=== PATIENT | female | born 1990 | race African-American/Black ===

== ENCOUNTER 2016-11-29 20:15 | Inpatient (IN) | payer BC, OTHER ==
[~2016-11-29] VITALS: Ht 167.6 cm; Wt 105.2 kg
[~2016-11-29 20:15] MED LIST: AGM875T PO; CPR500T PO; FLC150T PO; HYDR-3714 PO; HYDR1TAB PO; METR500T PO; PHEN37.555 PO; SULF1TAB35 PO
[2016-11-29 20:30] VITALS: BP 139/89
[2016-11-29] MEDS ORDERED: LACTATED RINGERS 1,000 ML IV ONE (20:44)
[2016-11-29] MEDS ORDERED: LACTATED RINGERS 1,000 ML IV SCH (20:51)
[2016-11-29] MEDS ORDERED: ZOLPIDEM 5 MG (AMBIEN) TAB PO ONE (21:00)
[2016-11-29] MEDS ORDERED: MINERAL OIL CONCENTRATE 99.9% 15 ML UDC TOP PRN (21:00)
[2016-11-29] MEDS ORDERED: MISOPROSTOL 100 MCG (CYTOTEC) TAB PO ONE (21:00)
[2016-11-29] MEDS ORDERED: MISOPROSTOL 100 MCG (CYTOTEC) TAB ONE (21:05)
[2016-11-29 21:12] LABS: BILIRUBIN,URINE NEGATIVE (NEGATIVE); KETONES,URINE NEGATIVE (NEGATIVE); LEUKOCYTE ESTERASE ,URINE NEGATIVE (NEGATIVE); NITRITE,URINE NEGATIVE (NEGATIVE); PH,URINE 5 (5-9); PROTEIN,URINE NEGATIVE (NEGATIVE); UROBILINOGEN,URINE NORMAL (NORMAL)
[2016-11-29 21:35] LABS: BASOPHILS % (AUTO) 0 % (0-10); EOSINOPHILS % (AUTO) 0 % (0-10); LYMPHOCYTES % (AUTO) 25 % (12-44); MEAN CORPUSCULAR HEMOGLOBIN 22 PG (25-34); MEAN CORPUSCULAR HGB CONC 32 G/DL (32-36); MEAN CORPUSCULAR VOLUME 67 FL (80-99); MEAN PLATELET VOLUME 10.1 FL (7.4-10.4); MONOCYTES % (AUTO) 9 % (0-12); NEUTROPHILS # (AUTO) 7.8 X 10^3 (1.8-7.8); NEUTROPHILS % (AUTO) 66 % (42-75); PLATELET COUNT 304 10^3/uL (130-400); RED BLOOD COUNT 5.45 10^6/uL (4.35-5.85); WHITE BLOOD COUNT 11.9 10^3/uL (4.3-11.0)
[2016-11-29] MEDS: D5 LR IV SOLUTION 1,000 ML IV SCH (21:58)
[2016-11-29] MEDS ORDERED: CATHETER FLUSH 10 ML SYR IV SCH (22:00)
[2016-11-29] MEDS ORDERED: PREN-142 PO (23:09)
[2016-11-29] MEDS ORDERED: OMEP20TA7 PO (23:09)
[2016-11-29] MEDS ORDERED: SUFENTA 0.6MCG/ML BUPIVA 0.125 100 ML ONE (23:53)
[2016-11-29 23:57] VITALS: BP 170/105
[2016-11-30] VITALS (62 sets, daily range): BP systolic 76–163; BP diastolic 46–99
[2016-11-30] MEDS ORDERED: morphine INJ 10 MG/ML 1ML (SYR OR VIAL) IVP PRN
[2016-11-30] MEDS ORDERED: PROMETHAZINE INJ 25 MG/ML (PHENERGAN) AMP IVP PRN
[2016-11-30] MEDS ORDERED: BUPIVACAINE 0.25% 30 ML (SENSORCAINE) VIAL ONE (00:25)
[2016-11-30] MEDS ORDERED: fentaNYL INJECTION 100 MCG/2 ML AMP ONE (00:26)
[2016-11-30] MEDS ORDERED: LACTATED RINGERS 1,000 ML IV SCH (00:26)
[2016-11-30] MEDS ORDERED: METOCLOPRAMIDE INJ 10 MG/2 ML (REGLAN) IV PRN (00:30)
[2016-11-30] MEDS ORDERED: NALOXONE 0.4 MG/ML 1 ML (NARCAN) VIAL IV PRN ×2 (00:30)
[2016-11-30] MEDS ORDERED: EPIDURAL (SUFENTA 0.6MCG/ML BUPIVA 0.125%) 100 ML BAG EPI PRN (00:30)
[2016-11-30] MEDS ORDERED: diphenhydrAMINE 50 MG/ML INJ (BENADRYL) IV PRN (00:30)
[2016-11-30] MEDS ORDERED: ONDANSETRON 4 MG/2 ML (SDV) Z0FRAN IV PRN (00:30)
[2016-11-30] MEDS ORDERED: MISOPROSTOL 100 MCG (CYTOTEC) TAB PO SCH (01:00)
[2016-11-30] MEDS: D5 LR IV SOLUTION 1,000 ML IV SCH ×2 (03:33→07:08)
[2016-11-30] MEDS ORDERED: OXYTOCIN/NORMAL SALINE 500 ML IV SCH ×2 (08:00→11:37)
[2016-11-30] MEDS ORDERED: LIDOCAINE/EPI 1%-1:200,000 (XYLOCAINE) 30 ML VIAL ONE (10:48)
--- NOTE | 2016-11-30 11:40 | Postpartum Progress Note ---
Note Note Vaginal Delivery Note Date of Delivery: 11/30/16 11:17 Preoperative Diagnosis: Fabiana Serra is a 25 /Para 1 /0 , Gestational Age 40 4/7 postdates Postoperative Diagnosis: Same Surgeon: DARLIN VEGA Anesthesia: epidural Delivery Type: spontaneous vaginal Findings: Viable male infant, apgars 8/9, weight 6#11 oz Lacerations:2nd degree with left vaginal extension Intact placenta with 3 vessel cord. There was a nuchal cord 1 delivered through , loose . There was no body cord or shoulder dystocia Cytotec 800 mcg placed for hemorrhage prophylaxis due to infiltration of IV prior to completing the IV oxytocin. Estimated Blood Loss: 150 ml Complications: None Condition: Stable Description of Procedure: The patient is a 25 /Para 1 /0 ,Gestational Age 40 4/7 postdates. She was admitted and informed consent was obtained. Her labor course was remarkable for misoprostol x 1 dosing, epidural placement, AROM and then augmentation with oxytocin. She progressed to complete dilatation and began to push. She was then set up for delivery. The 's head was delivered atraumatically in the OA position. The shoulders and remainder of the infant's body were then delivered without difficulty. Upon delivery, the head was held below the level of the perineum and the mouth and nares were bulb suctioned. At the time of delivery, the amniotic fluid was noted to be meconium stained at delivery. There was also terminal meconium. The cord was doubly clamped and cut and the infant was handed off to the pediatric staff. An intact placenta with 3-vessel cord delivered via Abdirahman and there was found to be minimal bleeding.~ Vigorous fundal massage was performed and the fundus was found to be firm. IV oxytocin was given. Examination of the vagina and perineum revealed a 2nd degree laceration with left vaginal extension repaired in the usual fashion with 3-0 Vicryl suture. Following the repair, sponge, instrument and needle counts were correct. Mom and baby were both in stable condition in the labor suite. Vitals - Labs Vital Signs - I&O Vital Signs Date Time Temp Pulse Resp B/P (MAP) Pulse Ox O2 Delivery O2 Flow Rate FiO2 11/30/16 10:15 96 20 139/76 15.00 11/30/16 10:00 96 20 139/76 15.00 11/30/16 09:45 90 20 136/76 15.00 11/30/16 09:30 89 20 137/79 15.00 11/30/16 09:15 94 20 133/74 15.00 11/30/16 09:00 102 20 138/77 15.00 11/30/16 08:45 102 20 139/82 11/30/16 08:30 102 20 139/82 11/30/16 08:15 123 20 133/82 11/30/16 08:00 91 20 116/69 11/30/16 07:45 99 20 127/76 11/30/16 07:30 99 20 76/82 11/30/16 07:15 97.9 109 20 139/82 100 11/30/16 07:00 90 142/82 100 11/30/16 06:45 112 144/78 99 11/30/16 06:30 98.4 105 150/82 99 11/30/16 06:15 118 147/80 100 11/30/16 06:00 101 150/85 100 11/30/16 05:45 103 144/77 100 11/30/16 05:30 115 153/86 100 11/30/16 05:15 89 146/74 100 15.00 11/30/16 05:00 96 136/75 100 15.00 11/30/16 04:45 90 138/64 100 15.00 11/30/16 04:30 86 145/65 100 15.00 11/30/16 04:15 71 110/53 100 15.00 11/30/16 04:00 104 105/64 100 15.00 11/30/16 03:45 84 138/75 100 15.00 11/30/16 03:30 98.2 85 132/67 100 15.00 11/30/16 03:15 91 100 15.00 11/30/16 03:00 98 140/78 100 15.00 11/30/16 02:45 81 125/59 100 15.00 11/30/16 02:30 81 132/67 100 15.00 11/30/16 02:17 100 15.00 11/30/16 02:15 74 131/70 100 10.00 11/30/16 02:00 80 124/63 99 10.00 11/30/16 01:45 85 140/71 100 10.00 11/30/16 01:30 108 117/56 100 10.00 11/30/16 01:25 93 93/46 100 10.00 11/30/16 01:20 96 129/56 100 10.00 11/30/16 01:12 100 111/56 100 10.00 11/30/16 01:05 97.6 99 115/58 11/30/16 01:00 103 163/91 100 10.00 11/30/16 00:55 77 156/92 11/30/16 00:50 76 139/78 11/30/16 00:45 90 140/78 99 11/30/16 00:40 90 159/81 11/30/16 00:30 93 131/74 100 10.00 11/30/16 00:25 100 163/96 100 10.00 11/30/16 00:15 99 158/97 100 10.00 11/30/16 00:09 92 149/90 100 10.00 11/30/16 00:04 102 156/90 10.00 11/29/16 23:57 96 170/105 10.00 11/29/16 23:30 98.3 10.00 11/29/16 22:17 10.00 11/29/16 20:30 97.9 104 18 139/89 I & O 11/30/16 07:00 Intake Total 3000 ml Balance 3000 ml Labs Laboratory Tests 11/29/16 21:00: Urine Color YELLOW, Urine Clarity CLEAR, Urine pH 5, Urine Specific [address] 1.025[address], Urine Protein NEGATIVE, Urine Glucose (UA) NEGATIVE, Urine Ketones NEGATIVE, Urine Nitrite NEGATIVE, Urine Bilirubin NEGATIVE, Urine Urobilinogen NORMAL, Urine Leukocyte Esterase NEGATIVE, Urine RBC (Auto) 1+H, Urine RBC NONE , Urine WBC NONE, Urine Squamous Epithelial Cells 2-5, Urine Crystals NONE, Urine Bacteria FEWH, Urine Casts NONE, Urine Mucus NEGATIVE, Urine Culture Indicated NO 11/29/16 21:20: White Blood Count 11.9H, Red Blood Count 5.45, Hemoglobin 11.7, Hematocrit 37, Mean Corpuscular Volume 67L, Mean Corpuscular Hemoglobin 22L, Mean Corpuscular Hemoglobin Concent 32, Red Cell Distribution Width 20.0H, Platelet Count 304, Mean Platelet Volume 10.1, Neutrophils (%) (Auto) 66, Lymphocytes (%) (Auto) 25 , Monocytes (%) (Auto) 9, Eosinophils (%) (Auto) 0, Basophils (%) (Auto) 0, Neutrophils # (Auto) 7.8, Lymphocytes # (Auto) 3.0, Monocytes # (Auto) 1.0, Eosinophils # (Auto) 0.0, Basophils # (Auto) 0.0 DARLIN VEGA DO November 30, 2016 11:40
[2016-11-30] MEDS ORDERED: BENZOCAINE/MENTHOL (DERMOPLAST) 56 ML CAN TP PRN (11:45)
[2016-11-30] MEDS ORDERED: WITCH HAZEL(TUCKS) 40 EA JAR TOP PRN (11:45)
[2016-11-30] MEDS ORDERED: TETANUS,DIPTH,PERTUSS P/F (BOOSTRIX) 0.5 ML VIAL IM ONE (11:45)
[2016-11-30] MEDS ORDERED: MEASLES,MUMPS,RUBELLA 1 EA INJ SQ ONE (11:45)
[2016-11-30] MEDS ORDERED: MISOPROSTOL 200 MCG (CYTOTEC) TABLET PR NR (13:30)
[2016-11-30] MEDS: HYDROcodone/APAP 5 MG/325 MG (LORTAB) TAB PO PRN ×2 (13:34→21:03)
[2016-11-30] MEDS: IBUPROFEN 600 MG (MOTRIN) TAB PO SCH ×2 (13:34→20:10)
[2016-11-30] MEDS: DIBUCAINE (NUPERCAINAL) 1% OINT 30 GM TOP PRN (13:34)
[2016-11-30] MEDS ORDERED: CATHETER FLUSH 10 ML SYR IV SCH (14:00)
[2016-11-30] MEDS ORDERED: HYDR-3812 PO (15:47)
[2016-11-30] MEDS ORDERED: IBUP-1773 PO (15:47)
[2016-11-30] MEDS ORDERED: FERR-74 PO (15:47)
--- NOTE | 2016-11-30 15:48 | Discharge Inst-Women's Service ---
Discharge Inst-Women's Serv Depart Medication/Instructions New, Converted or Re-Newed RX: RX on Chart Final Diagnosis post dates vaginal delivery epidural 2nd degree laceration Consults/Follow Up Additional Follow Up: Yes (6 weeks post follow up) Activity Activity: Activity as Tolerated Driving Instructions: You May Drive NO SMOKING: NO SMOKING Nothing Inside Vagina: No Douching, No [place], No Tampons Diet Discharge Diet: No Restrictions Symptoms to Report to : Swelling Increased, Bleeding Excessive, Pain Increased, Fever Over 101 Degrees F, Vaginal Bleeding Increase, Cramps in Feet or Legs, Vaginal Discharge Foul For Any Problems or Questions: Contact Your Physician Skin/Wound Care Bathing Instructions: DARLIN Mejía DO November 30, 2016 15:48
[2016-11-30] MEDS: DOCUSATE SODIUM 100 MG (COLACE) CAP PO SCH (20:10)
[2016-12-01] MEDS: HYDROcodone/APAP 5 MG/325 MG (LORTAB) TAB PO PRN ×2 (05:52→16:57)
[2016-12-01] MEDS: IBUPROFEN 600 MG (MOTRIN) TAB PO SCH ×4 (05:52→23:56)
[2016-12-01 05:55] VITALS: BP 130/73
[2016-12-01 06:35] LABS: BASOPHILS % (AUTO) 0 % (0-10); EOSINOPHILS # (AUTO) 0.1 10^3/uL (0.0-0.3); EOSINOPHILS % (AUTO) 0 % (0-10); LYMPHOCYTES # (AUTO) 3.8 X 10^3 (1.0-4.0); LYMPHOCYTES % (AUTO) 27 % (12-44); MEAN CORPUSCULAR HEMOGLOBIN 21 PG (25-34); MEAN CORPUSCULAR HGB CONC 31 G/DL (32-36); MEAN CORPUSCULAR VOLUME 68 FL (80-99); MEAN PLATELET VOLUME 9.1 FL (7.4-10.4); MONOCYTES # (AUTO) 1.1 X 10^3 (0.0-1.0); MONOCYTES % (AUTO) 8 % (0-12); NEUTROPHILS % (AUTO) 65 % (42-75); PLATELET COUNT 229 10^3/uL (130-400); RED BLOOD COUNT 4.91 10^6/uL (4.35-5.85); RED CELL DISTRIBUTION WIDTH 19.9 % (10.0-14.5); WHITE BLOOD COUNT 13.9 10^3/uL (4.3-11.0)
[2016-12-01 09:00] VITALS: BP 125/81
[2016-12-01] MEDS: DOCUSATE SODIUM 100 MG (COLACE) CAP PO SCH ×2 (09:18→21:35)
[2016-12-01] MEDS: PRENATAL VITAMIN 1 EA TAB PO SCH (09:18)
[2016-12-01] MEDS: FERROUS SULF 325 MG (IRON) TAB PO SCH (09:18)
[2016-12-01 12:30] VITALS: BP 127/81
--- NOTE | 2016-12-01 13:37 | Anesthesia-Regional Post-Op ---
Regional Patient Condition Mental Status: Alert, Oriented x3 Circulation: Same as Pre-Op Headache: Absent Sensation: Full Recovery Motor Block: Absent Post Op Complications Complications None Follow Up Care/Instructions Patient Instructions None needed. Anesthesia/Patient Condition Patient is doing well, no complaints, stable vital signs, no apparent adverse anesthesia problems. No complications reported per nursing. SHAISTA PRADO CRNA December 01, 2016 13:37
[2016-12-01] MEDS ORDERED: MEASLES,MUMPS,RUBELLA 1 EA INJ ONE (14:38)
[2016-12-01 18:00] VITALS: BP 140/92
--- NOTE | 2016-12-01 18:23 | Progress Note-Standard ---
Standard Progress Note Progress Notes/Assess & Plan Progress/Assessment & Plan this patient is without complaint except for some back pain that she attributes to a pulled muscle and perineal pain secondary to her delivery. Pain medicine is adequate currently. Patient is ambulating, voiding and tolerating by mouth well.she denies headache, denies shortness breath, denies nausea vomiting. Vital Signs Date Time Temp Pulse Resp B/P (MAP) Pulse Ox O2 Delivery O2 Flow Rate FiO2 12/01/16 18:00 98.2 94 20 140/92 100 12/01/16 12:30 97.6 84 18 127/81 100 12/01/16 09:00 97.4 87 18 125/81 99 12/01/16 05:55 97.6 84 18 130/73 98 11/30/16 20:00 97.8 87 18 131/84 99 I & O 12/01/16 07:00 Intake Total 1575 ml Balance 1575 ml Laboratory Tests Test 12/01/16 06:27 Range/Units White Blood Count 13.9 H 4.3-11.0 10^3/uL Red Blood Count 4.91 4.35-5.85 10^6/uL Hemoglobin 10.5 L 11.5-16.0 G/DL Hematocrit 34 L 35-52 % Mean Corpuscular Volume 68 L 80-99 FL Mean Corpuscular Hemoglobin 21 L 25-34 PG Mean Corpuscular Hemoglobin Concent 31 L 32-36 G/DL Red Cell Distribution Width 19.9 H 10.0-14.5 % Platelet Count 229 130-400 10^3/uL Mean Platelet Volume 9.1 7.4-10.4 FL Neutrophils (%) (Auto) 65 42-75 % Lymphocytes (%) (Auto) 27 12-44 % Monocytes (%) (Auto) 8 0-12 % Eosinophils (%) (Auto) 0 0-10 % Basophils (%) (Auto) 0 0-10 % Neutrophils # (Auto) 9.0 H 1.8-7.8 X 10^3 Lymphocytes # (Auto) 3.8 1.0-4.0 X 10^3 Monocytes # (Auto) 1.1 H 0.0-1.0 X 10^3 Eosinophils # (Auto) 0.1 0.0-0.3 10^3/uL Basophils # (Auto) 0.0 0.0-0.1 10^3/uL patient's vital signs are stable. She is afebrile. Her blood pressure somewhat labile but that has been associated with her episodes of increasing pain. Lab work is normal. Assessment and plan day number 1 status post spontaneous vaginal delivery doing well. Plan is for routine convalescing care and consider discharge tomorrow BILLIE MERCADO MD December 01, 2016 6:22 pm
[2016-12-01] MEDS: DIBUCAINE (NUPERCAINAL) 1% OINT 30 GM TOP PRN (18:38)
[2016-12-01 21:35] VITALS: BP 146/77
[2016-12-02] MEDS: IBUPROFEN 600 MG (MOTRIN) TAB PO SCH (05:49)
[2016-12-02 05:50] VITALS: BP 110/69
[2016-12-02] MEDS: HYDROcodone/APAP 5 MG/325 MG (LORTAB) TAB PO PRN (05:52)
--- NOTE | 2016-12-02 07:26 | Progress Note-Standard ---
Standard Progress Note Progress Notes/Assess & Plan Progress/Assessment & Plan this patient is without complaint except for some back pain that she attributes to a pulled muscle and perineal pain secondary to her delivery. Pain medicine is adequate currently. Patient is ambulating, voiding and tolerating by mouth well.she denies headache, denies shortness breath, denies nausea vomiting. Vital Signs Date Time Temp Pulse Resp B/P (MAP) Pulse Ox O2 Delivery O2 Flow Rate FiO2 12/01/16 18:00 98.2 94 20 140/92 100 12/01/16 12:30 97.6 84 18 127/81 100 12/01/16 09:00 97.4 87 18 125/81 99 12/01/16 05:55 97.6 84 18 130/73 98 11/30/16 20:00 97.8 87 18 131/84 99 I & O 12/01/16 07:00 Intake Total 1575 ml Balance 1575 ml Laboratory Tests Test 12/01/16 06:27 Range/Units White Blood Count 13.9 H 4.3-11.0 10^3/uL Red Blood Count 4.91 4.35-5.85 10^6/uL Hemoglobin 10.5 L 11.5-16.0 G/DL Hematocrit 34 L 35-52 % Mean Corpuscular Volume 68 L 80-99 FL Mean Corpuscular Hemoglobin 21 L 25-34 PG Mean Corpuscular Hemoglobin Concent 31 L 32-36 G/DL Red Cell Distribution Width 19.9 H 10.0-14.5 % Platelet Count 229 130-400 10^3/uL Mean Platelet Volume 9.1 7.4-10.4 FL Neutrophils (%) (Auto) 65 42-75 % Lymphocytes (%) (Auto) 27 12-44 % Monocytes (%) (Auto) 8 0-12 % Eosinophils (%) (Auto) 0 0-10 % Basophils (%) (Auto) 0 0-10 % Neutrophils # (Auto) 9.0 H 1.8-7.8 X 10^3 Lymphocytes # (Auto) 3.8 1.0-4.0 X 10^3 Monocytes # (Auto) 1.1 H 0.0-1.0 X 10^3 Eosinophils # (Auto) 0.1 0.0-0.3 10^3/uL Basophils # (Auto) 0.0 0.0-0.1 10^3/uL patient's vital signs are stable. She is afebrile. Her blood pressure somewhat labile but that has been associated with her episodes of increasing pain. Lab work is normal. Assessment and plan day number 1 status post spontaneous vaginal delivery doing well. Plan is for routine convalescing care and consider discharge tomorrow Dec 02 2016 Patient without complaint. She is ablating, voiding, tolerating by mouth well, has good pain control and is requesting discharge home. Vital Signs Date Time Temp Pulse Resp B/P (MAP) Pulse Ox O2 Delivery O2 Flow Rate FiO2 12/02/16 05:50 97.4 76 20 110/69 97 12/01/16 21:35 97.3 89 20 146/77 97 15.00 15.00 12/01/16 18:00 98.2 94 20 140/92 100 12/01/16 12:30 97.6 84 18 127/81 100 12/01/16 09:00 97.4 87 18 125/81 99 Signs Are Stable. Patient Is Afebrile. Fundus Is Firm below the Umbilicus Nontender. Extremities Show No Clubbing Cyanosis. There Is No Homans Sign. Assessment and Plan day 2 status post spontaneous vaginal delivery doing well. Plan is for discharge home with follow-up in clinic Final Diagnosis BILLIE FRITZ MD December 02, 2016 7:26 am
[2016-12-02 09:15] VITALS: BP 124/78
[2016-12-02] MEDS: PRENATAL VITAMIN 1 EA TAB PO SCH (09:52)
[2016-12-02] MEDS: DOCUSATE SODIUM 100 MG (COLACE) CAP PO SCH (09:52)
[2016-12-02] MEDS: FERROUS SULF 325 MG (IRON) TAB PO SCH (09:52)
[2016-12-02 12:15] VITALS: BP 124/78
== END 2016-12-02 12:15 | disposition home or self-care (01) | DRG 774 ==
LOC: LDRP 20:15
PROVIDERS: ADMIT Obstetrics & Gynecology; ATTEND Obstetrics & Gynecology
PROC: 10E0XZZ Delivery of Products of Conception, External Approach (ICD-10-PCS; principal; 2016-11-30)
PROC: 0KQM0ZZ Repair Perineum Muscle, Open Approach (ICD-10-PCS; 2016-11-30)
DX: O48.0 Post-term pregnancy (principal); O72.1 Other immediate postpartum hemorrhage; O70.1 Second degree perineal laceration during delivery; O69.81X0 Labor and delivery complicated by cord around neck, without compression, not applicable or unspecified; Z3A.40 40 weeks gestation of pregnancy; Z37.0 Single live birth; Z23 Encounter for immunization
CPT/HCPCS: 36415; 81000; 85025; 86850; 86900; 86901; 90707

== ENCOUNTER 2021-06-08 18:02 | Emergency (ER) | payer OTHER ==
[~2021-06-08] VITALS: Ht 167 cm; Wt 102.9 kg
[~2021-06-08 18:02] MED LIST changes: +ACHD5005 PO; +FERR325T18 PO; +IBUP-1773 PO; +OMEP20TA7 PO; +PREN-142 PO
[2021-06-08] MEDS ORDERED: NS IV 1000 ML 1,000 ML IV SCH (18:30)
--- NOTE | 2021-06-08 18:31 | ED Dyspnea ---
General Stated Complaint: COVID POSITIVE, SOB Source of Information: Patient Exam Limitations: No Limitations History of Present Illness Date Seen by Provider: Jun 08, 2021 Time Seen by Provider: 18:20 Initial Comments Patient is a 30-year-old female who presents to the emergency department today with a chief complaint of being Covid positive, having generalized fatigue and weakness, shortness of breath, severe coughing fit. She is also having some diarrhea. Patient states she was diagnosed a week ago yesterday. This is day nine. Patient was started on hydroxychloroquine, Zofran, azithromycin and prednisone by her primary care doctor. She states she stopped taking the hydroxychloroquine today. Patient denies any fevers or chills or sore throat. She has had a little ear congestion. She states her cough is intermittently productive of a clear sputum. She is very nauseated having a hard time keeping down fluids and food. She states she has been up walking around but she does h ave a little calf cramping in her bilateral legs. No swelling. She states she has been quarantining and her and son are both Covid negative. Just after a coughing fit today she became so short of breath she thought she needed to be checked out. All other review of systems reviewed and negative except as stated. Timing/Duration: 1 Week Severity: Moderate Prior Episodes/Possible Cause: Illness Exposure Modifying Factors: Worse With Coughing; Improves With Rest Associated Symptoms: Anxiety, Cough, Lightheadedness, Weakness Allergies and Home Medications Allergies Coded Allergies: Sulfa (Sulfonamide Antibiotics) (Unverified Allergy, Intermediate, CHEST PAIN, RASH, 11/18/10) Uncoded Allergies: SULF (Allergy, Unknown, SWELLING, 02/09/14) Patient Home Medication List Home Medication List Reviewed: Yes Ferrous Sulfate (Ferrous Sulfate) 325 Mg Tablet, 325 MG PO DAILY Prescribed by: DARLIN VEGA on 11/30/161546 Hydrocodone Bit/Acetaminophen (Lortab 5 Mg Tablet) 1 Each Tablet, 1-2 TAB PO Q4H PRN for PAIN-MODERATE Prescribed by: DARLIN VEGA on 11/30/161546 Ibuprofen (Ibuprofen) 600 Mg Tablet, 600 MG PO Q6H Prescribed by: DARLIN VEGA on 11/30/161546 Omeprazole (Omeprazole) 20 Mg Tablet.dr 20 MG PO PRN, (Reported) Entered as Reported by: MARCEL OATES on 11/29/162308 Vit No.124/Iron/FA ( Vitamin Tablet) 1 Each Tablet, 1 EACH PO DAILY, (Reported) Entered as Reported by: MARCEL OATES on 11/29/162308 Review of Systems Review of Systems Constitutional: see HPI EENTM: other (left ear fullness) Respiratory: cough, dyspnea on exertion, phlegm, short of breath Cardiovascular: no symptoms reported Gastrointestinal: diarrhea, nausea Genitourinary: no symptoms reported Musculoskeletal: muscle cramps (bilateral legs) Skin: no symptoms reported Psychiatric/Neurological: Anxiety All Other Systems Reviewed Negative Unless Noted: Yes Past Jkinggi-Useoth-Wlfhta Hx Seasonal Allergies Seasonal Allergies: No Past Medical History Surgeries: Yes Respiratory: No Cardiac: No Neurological: No Genitourinary: No Gastrointestinal: Yes (GERD) Musculoskeletal: No Endocrine: No HEENT: No Cancer: No Psychosocial: Yes Anxiety Integumentary: Yes Eczema Blood Disorders: No Adverse Reaction/Blood Tranf: No Family Medical History Diabetes mellitus (Father- type one Grandmother - type one) FH: arthritis (Mother) FH: prostate cancer (Father) FHx: rheumatoid arthritis (Mother) Hypertension (Mother) Physical Exam Vital Signs Vital Signs - First Documented 06/08/21 18:33 Temp 36.3 Pulse 133 Resp 26 B/P (MAP) 136/93 (107) Pulse Ox 98 Capillary Refill : Height, Weight, BMI Height: 5'6.00" Weight: 232lbs. 0.2oz. 105.810742xw; 37.5 BMI Method:Stated General Appearance: WD/WN, Anxious HEENT: TMs Normal Neck: Full Range of Motion, Normal Inspection Respiratory: Normal Breath Sounds, No Accessory Muscle Use, No Respiratory Distress, Crackles (scattered light crackles at the apices bilaterally) Cardiovascular: Regular Rate, Rhythm (tachy at 110-130), Normal Peripheral Pulses, Other (brisk cap refill) Gastrointestinal: Non Tender, Soft Extremity: Normal Capillary Refill, Normal Inspection, Normal Range of Motion, Non Tender, No Calf Tenderness, No Pedal Edema Neurologic/Psychiatric: Alert, Oriented x3, No Motor/Sensory Deficits, Normal Mood/Affect, Other (slightly anxious) Skin: Normal Color, Warm/Dry Progress/Results/Core Measures Results/Orders Lab Results Laboratory Tests Test 06/08/21 18:29 Range/Units White Blood Count 4.7 4.3-11.0 10^3/uL Red Blood Count 6.13 H 3.80-5.11 10^6/uL Hemoglobin 12.9 11.5-16.0 g/dL Hematocrit 41 35-52 % Mean Corpuscular Volume 67 L 80-99 fL Mean Corpuscular Hemoglobin 21 L 25-34 pg Mean Corpuscular Hemoglobin Concent 31 L 32-36 g/dL Red Cell Distribution Width 18.5 H 10.0-14.5 % Platelet Count 266 130-400 10^3/uL Mean Platelet Volume 8.9 L 9.0-12.2 fL Immature Granulocyte % (Auto) 0 % Neutrophils (%) (Auto) 79 H 42-75 % Lymphocytes (%) (Auto) 12 12-44 % Monocytes (%) (Auto) 9 0-12 % Eosinophils (%) (Auto) 0 0-10 % Basophils (%) (Auto) 0 0-10 % Neutrophils # (Auto) 3.7 1.8-7.8 10^3/uL Lymphocytes # (Auto) 0.6 L 1.0-4.0 10^3/uL Monocytes # (Auto) 0.4 0.0-1.0 10^3/uL Eosinophils # (Auto) 0.0 0.0-0.3 10^3/uL Basophils # (Auto) 0.0 0.0-0.1 10^3/uL Immature Granulocyte # (Auto) 0.0 0.0-0.1 10^3/uL Sodium Level 136 135-145 MMOL/L Potassium Level 4.0 3.6-5.0 MMOL/L Chloride Level 101 98-107 MMOL/L Carbon Dioxide Level 20 L 21-32 MMOL/L Anion Gap 15 H 5-14 MMOL/L Blood Urea Nitrogen 13 7-18 MG/DL Creatinine 0.74 0.60-1.30 MG/DL Estimat Glomerular Filtration Rate 112 BUN/Creatinine Ratio 18 Glucose Level 121 H 70-105 MG/DL Calcium Level 9.1 8.5-10.1 MG/DL My Orders Orders - ANITA PEOPLES MD Ed Iv/Invasive Line Start (06/08/21 18:27) Cbc With Automated Diff (06/08/21 18:27) Basic Metabolic Panel (06/08/21 18:27) Chest 1 View, Ap/Pa Only (06/08/21 18:27) Ns Iv 1000 Ml (Sodium Chloride 0.9%) (06/08/21 18:30) Simethicone Tablet (Mylicon Chewable Tab (06/08/21 19:15) Medications Given in ED Current Medications Medications Dose Ordered Sig/Jorge Route Start Time Stop Time Status Last Admin Dose Admin Simethicone 80 mg ONCE ONCE PO 06/08/21 19:15 06/08/21 19:16 DC 06/08/21 19:34 80 MG Vital Signs/I&O 06/08/21 18:33 Temp 36.3 Pulse 133 Resp 26 B/P (MAP) 136/93 (107) Pulse Ox 98 Progress Progress Note : Time: 20:00 Progress Note Patient states she is feeling better after fluids. I recommended she finish out her steroids and her azithromycin but she can stop the hydroxychloroquine. She is resting comfortably laying on her right side, blood pressure is good oxygen saturations are 97 to 98% on room air. Heart rate is in the 80s. Patient does have bilateral pneumonia consistent with her Covid infection. It is nonsevere. She is encouraged to spot check her oxygen levels at home and if she starts to notice that they are declining especially below 90 she needs to come back to the emergency department. I have advised her to continue to have some activity as well as to drink plenty of fluids. She verbalizes understanding. She is comfortable with discharged home. All questions have been sought and answered. Diagnostic Imaging Diagonstic Imaging: Xray Plain Films/CT/US/NM/MRI: chest Comments [facility] [place], [place] NAME: ANGELINA SILVESTRE [facility] REC#: [id number] PT STATUS: REG ER : 1990 PHYSICIAN: ANITA PEOPLES MD ADMIT DATE: 06/08/21/ER Signed Date of Exam:06/08/21 CHEST 1 VIEW, AP/PA ONLY HISTORY: Shortness of breath, cough, Covid positive. TECHNIQUE: Frontal view of the chest. COMPARISON: 04/07/2013. FINDINGS: There are patchy airspace opacities in the right lung base and left upper lobe. There is no pleural effusion or pneumothorax. The cardiac silhouette is normal in size. IMPRESSION: Bilateral airspace opacities, consistent with infection. Dictated by: Dictated on workstation # [id number] Dict: 06/08/211918 Trans: 06/08/211945 [facility] [id number] Interpreted by: RIKY MERCEDES MD Electronically signed by: RIKY MERCEDES MD 06/08/211945 Departure Impression Primary Impression: Pneumonia due to COVID-19 virus Additional Impression: Mild dehydration Disposition: HOME, SELF-CARE Condition: Stable Departure-Patient Inst. Decision time for Depature: 20:02 Referrals: LUCIEN ROGERS MD (PCP/Family) Primary Care Physician Patient Instructions: COVID-19 ED Add. Discharge Instructions: Please drink plenty of fluids to stay well-hydrated. Continue Tylenol and/or ibuprofen as needed for body aches/fever. Finish out your steroids. And finish her azithromycin. You can discontinue the hydroxychloroquine. Please continue to spot check your oxygen saturations, if you notice that they are trending lower especially below 90, if you are having worsening shortness of breath, develop fever or worsening cough please come back to the emergency room for reevaluation. ANITA PEOPLES MD Jun 08, 2021 18:31
[2021-06-08 18:37] LABS: BASOPHILS % (AUTO) 0 % (0-10); EOSINOPHILS % (AUTO) 0 % (0-10); HEMATOCRIT 41 % (35-52); HEMOGLOBIN 12.9 g/dL (11.5-16.0); LYMPHOCYTES # (AUTO) 0.6 10^3/uL (1.0-4.0); LYMPHOCYTES % (AUTO) 12 % (12-44); MEAN CORPUSCULAR HEMOGLOBIN 21 pg (25-34); MEAN CORPUSCULAR HGB CONC 31 g/dL (32-36); MEAN CORPUSCULAR VOLUME 67 fL (80-99); MEAN PLATELET VOLUME 8.9 fL (9.0-12.2); MONOCYTES # (AUTO) 0.4 10^3/uL (0.0-1.0); MONOCYTES % (AUTO) 9 % (0-12); NEUTROPHILS # (AUTO) 3.7 10^3/uL (1.8-7.8); NEUTROPHILS % (AUTO) 79 % (42-75); PLATELET COUNT 266 10^3/uL (130-400); WHITE BLOOD COUNT 4.7 10^3/uL (4.3-11.0)
[2021-06-08 18:53] LABS: CALCIUM 9.1 MG/DL (8.5-10.1)
[2021-06-08 18:57] LABS: CREATININE SERUM 0.74 MG/DL (0.60-1.30)
[2021-06-08] MEDS ORDERED: SIMETHICONE 80 MG (MYLICON) CHEW PO ONE (19:15)
--- NOTE | 2021-06-08 19:23 | Diagnostic Imaging Report ---
HISTORY: Shortness of breath, cough, Covid positive. TECHNIQUE: Frontal view of the chest. COMPARISON: 04/07/2013. FINDINGS: There are patchy airspace opacities in the right lung base and left upper lobe. There is no pleural effusion or pneumothorax. The cardiac silhouette is normal in size. IMPRESSION: Bilateral airspace opacities, consistent with infection. Dictated by: Dictated on workstation # [id number]
[2021-06-08 20:15] VITALS: BP 121/79
[2021-06-09] MEDS ORDERED: ONDA4TAB11 PO (20:35)
[2021-06-09] MEDS ORDERED: DEXA6TAB6 PO (20:35)
[2021-06-09] MEDS ORDERED: OXYGEN CONCENTRATOR (20:35)
== END 2021-06-08 20:18 | disposition home or self-care (01) ==
LOC: EDUNIT# 18:02 → ER 18:04
DX: U07.1 COVID-19 (principal); J12.82 Pneumonia due to coronavirus disease 2019; E86.0 Dehydration
CPT/HCPCS: 36415; 71045; 80048; 85025

== ENCOUNTER 2021-06-09 17:19 | Emergency (ER) | payer OTHER ==
[~2021-06-09] VITALS: Ht 167 cm; Wt 103.0 kg
[2021-06-09] MEDS ORDERED: LACTATED RINGERS 1,000 ML IV ONE (18:00)
--- NOTE | 2021-06-09 18:06 | ED General ---
General Chief Complaint: COVID19 Suspect/Confirmed Stated Complaint: COVID POSITIVE, SOB Nursing Triage Note: PT AMB TO RM 9 W REPORTS OF TESTING COVID + SATURDAY. PT IS CONCERNED ABOUT HER O2 SAT THE PAST 24 HOURS, REPORTING IT HAS BEEN IN THE LOW 90%. PT A&OX4. Source of Information: Patient Exam Limitations: No Limitations (CIPRIANO NINO MD) History of Present Illness Date Seen by Provider: Jun 09, 2021 Time Seen by Provider: 17:36 Initial Comments This 30-year-old young lady presents to the emergency room on day #10 of COVID- 19 infection. She has been ill since May 31 and was diagnosed on June 03. She has been treated with prednisone, azithromycin, and hydroxychloroquine. She was seen in this ER last night and was given IV hydration. Hydroxychloroquine was stopped and her GI symptoms have improved. She has been able to drink several bottles of water today without vomiting or diarrhea. However, today she feels more short of breath and has anxiety about sleeping. She notes her oxygen levels dropped to 91% at home while awake. She was noted to have an oxygen saturation of 88 on room air when she checked into the ER. She has a few doses of prednisone left. She took her last dose of a azithromycin today. She denies any other significant health problems. She did not receive monoclonal antibodies. She does have chest pain with coughing and deep breathing. She describes it as a burning sensation. She is tearful about the duration and intensity of her symptoms. (CIPRIANO NINO MD) Allergies and Home Medications Allergies Coded Allergies: Sulfa (Sulfonamide Antibiotics) (Unverified Allergy, Intermediate, CHEST PAIN, RASH, 11/18/10) Uncoded Allergies: SULF (Allergy, Unknown, SWELLING, 02/09/14) Patient Home Medication List Home Medication List Reviewed: Yes (CIPRIANO NINO MD) Dexamethasone (Decadron) 6 Mg Tablet, 6 MG PO DAILY Prescribed by: FELICE MCCABE on 06/09/212034 Ferrous Sulfate (Ferrous Sulfate) 325 Mg Tablet, 325 MG PO DAILY Prescribed by: DARLIN VEGA on 11/30/16 1105 Hydrocodone Bit/Acetaminophen (Lortab 5 Mg Tablet) 1 Each Tablet, 1-2 TAB PO Q4H PRN for PAIN-MODERATE Prescribed by: DARLIN VEGA on 11/30/161546 Ibuprofen (Ibuprofen) 600 Mg Tablet, 600 MG PO Q6H Prescribed by: DARLIN VEGA on 11/30/161546 Omeprazole (Omeprazole) 20 Mg Tablet.dr, 20 MG PO PRN, (Reported) Entered as Reported by: MARCEL OATES on 11/29/162308 Ondansetron (Ondansetron Odt) 4 Mg Tab.rapdis, 4 MG PO Q6H PRN for NAUSEA/VOMITING Prescribed by: FELICE MCCABE on 06/09/212034 Vit No.124/Iron/FA ( Vitamin Tablet) 1 Each Tablet, 1 EACH PO DAILY, (Reported) Entered as Reported by: MARCEL OATES on 11/29/162308 [oxygen Concentrator] , L NA DAILY PRN for SHORTNESS OF BREATH, (DME) Prescribed by: FELICE MCCABE on 06/09/212034 Review of Systems Review of Systems Constitutional: malaise EENTM: other (Dry mouth) Respiratory: see HPI Cardiovascular: no symptoms reported Gastrointestinal: see HPI Genitourinary: no symptoms reported : No Musculoskeletal: no symptoms reported Skin: no symptoms reported Psychiatric/Neurological: Anxiety Hematologic/Lymphatic: No Symptoms Reported Immunological/Allergic: no symptoms reported (CIPRIANO NINO MD) Past Mtbhici-Euvqsg-Dshbab Hx Patient Social History Tobacco Use?: No Use of E-Cig and/or Vaping dev: No Substance use?: No Alcohol Use?: No (CIPRIANO NINO MD) Immunizations Up To Date First/Initial COVID19 Vaccinat: 10/13 COVID19 Vaccine 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: [employer] (CIPRIANO NINO MD) Seasonal Allergies Seasonal Allergies: No (CIPRIANO NINO MD) Past Medical History Surgery/Hospitalization HX: anxiety Surgeries: Yes ([place] teeth) Orthopedic, Tonsillectomy Respiratory: No Cardiac: No Neurological: No : No Genitourinary: No Gastrointestinal: Yes (GERD) Gastroesophageal Reflux Musculoskeletal: No Endocrine: No HEENT: No Cancer: No Psychosocial: Yes Anxiety Integumentary: Yes Eczema Blood Disorders: No Adverse Reaction/Blood Tranf: No (CIPRIANO NINO MD) Family Medical History Diabetes mellitus (Father- type one Grandmother - type one) FH: arthritis (Mother) FH: prostate cancer (Father) FHx: rheumatoid arthritis (Mother) Hypertension (Mother) Physical Exam Vital Signs Vital Signs - First Documented 06/09/21 17:27 Temp 37.0 Pulse 104 Resp 22 B/P (MAP) 134/88 (103) Pulse Ox 88 (CORTEZ,FELICE J) Vital Signs Capillary Refill : Less Than 3 Seconds (CIPRIANO NINO MD) Height, Weight, BMI Height: 5'6.00" Weight: 232lbs. 0.2oz. 105.272052gd; 36.00 BMI Method:Stated General Appearance: WD/WN, Anxious HEENT: PERRL/EOMI, Normal ENT Inspection, Other (Oropharynx somewhat dry) Neck: Normal Inspection Respiratory: Lungs Clear, No Accessory Muscle Use, No Respiratory Distress; No Crackles; Decreased Breath Sounds; No Wheezing Cardiovascular: Regular Rate, Rhythm, No Edema, No Murmur Gastrointestinal: Normal Bowel Sounds, Non Tender, Soft Extremity: Normal Inspection, Non Tender, No Pedal Edema Neurologic/Psychiatric: Alert, Oriented x3, No Motor/Sensory Deficits, horticultural therapist II- XII Norm as Tested, Other (Anxious) Skin: Normal Color, Warm/Dry (CIPRIANO NINO MD) Progress/Results/Core Measures Suspected Sepsis SIRS Temperature: Pulse: 104 Respiratory Rate: 22 Blood Pressure 134 /88 Mean: 103 (CIPRIANO NINO MD) Results/Orders Lab Results Laboratory Tests Test 06/09/21 18:09 06/09/21 18:40 Range/Units Blood Gas Puncture Site L RADIAL Blood Gas Patient Temperature 37.0 Arterial Blood pH 7.46 H 7.37-7.43 Arterial Blood Partial Pressure CO2 34 L 35-45 MMHG Arterial Blood Partial Pressure O2 74 L 79-93 MMHG Arterial Blood HCO3 24 23-27 MMOL/L Arterial Blood Total CO2 25.2 21.0-31.0 MMOL/L Arterial Blood Oxygen Saturation 94 94-100 % Arterial Blood Base Excess 0.7 -2.5-2.5 MMOL/L [place] Test YES-POS Blood Gas Ventilator Setting NO Blood Gas Inspired Oxygen ROOM AIR White Blood Count 5.2 4.3-11.0 10^3/uL Red Blood Count 5.91 H 3.80-5.11 10^6/uL Hemoglobin 12.2 11.5-16.0 g/dL Hematocrit 40 35-52 % Mean Corpuscular Volume 67 L 80-99 fL Mean Corpuscular Hemoglobin 21 L 25-34 pg Mean Corpuscular Hemoglobin Concent 31 L 32-36 g/dL Red Cell Distribution Width 17.8 H 10.0-14.5 % Platelet Count 269 130-400 10^3/uL Mean Platelet Volume 9.2 9.0-12.2 fL Immature Granulocyte % (Auto) 0 % Neutrophils (%) (Auto) 73 42-75 % Lymphocytes (%) (Auto) 18 12-44 % Monocytes (%) (Auto) 10 0-12 % Eosinophils (%) (Auto) 0 0-10 % Basophils (%) (Auto) 0 0-10 % Neutrophils # (Auto) 3.7 1.8-7.8 10^3/uL Lymphocytes # (Auto) 0.9 L 1.0-4.0 10^3/uL Monocytes # (Auto) 0.5 0.0-1.0 10^3/uL Eosinophils # (Auto) 0.0 0.0-0.3 10^3/uL Basophils # (Auto) 0.0 0.0-0.1 10^3/uL Immature Granulocyte # (Auto) 0.0 0.0-0.1 10^3/uL D-Dimer 0.67 H 0.00-0.49 UG/ML Sodium Level 136 135-145 MMOL/L Potassium Level 4.0 3.6-5.0 MMOL/L Chloride Level 101 98-107 MMOL/L Carbon Dioxide Level 22 21-32 MMOL/L Anion Gap 13 5-14 MMOL/L Blood Urea Nitrogen 9 7-18 MG/DL Creatinine 0.66 0.60-1.30 MG/DL Estimat Glomerular Filtration Rate 127 BUN/Creatinine Ratio 14 Glucose Level 114 H 70-105 MG/DL Calcium Level 9.0 8.5-10.1 MG/DL Magnesium Level 2.4 1.6-2.4 MG/DL C-Reactive Protein High Sensitivity 6.09 H 0.00-0.50 MG/DL Serum Test, Qualitative NEGATIVE NEGATIVE (FELICE MCCABE) My Orders Orders - FELICE MCCABE Arterial Blood Gas (06/09/21 18:11) Covid-19 External Lab Results (06/09/21 18:44) Rx-Albuterol Inhaler (Rx-Ventolin Hfa In (06/09/21 20:37) (FELICE MCCABE) Vital Signs/I&O 06/09/21 17:27 Temp 37.0 Pulse 104 Resp 22 B/P (MAP) 134/88 (103) Pulse Ox 88 (FELICE MCCABE) Vital Signs/I&O Capillary Refill : Less Than 3 Seconds (CIPRIANO NINO MD) Blood Pressure Mean: 103 Progress Note : Progress Note Approach to care was discussed with Dr. Mccabe. We will provide her with hydration and check labs and an x-ray again. We will monitor her room air oxygen saturations and obtain an ABG. D-dimer is also pending. (CIPRIANO NINO MD) Progress Note #1: Time: 20:28 Progress Note #2: Time: 20:29 Progress Note Patient is feeling okay. She certainly could use oxygen and her ABG demonstrates hypoxia. She does not necessarily need to stay in the hospital. We will switch her over to Decadron the and give her some more Zofran, albuterol, return precautions. Patient is okay with this plan. She does not need any IV hydration at this time. Otherwise aseptic vital signs. Paged the on-call DME and oxygen supply at [facility]. (FELICE MCCABE) Diagnostic Imaging Diagonstic Imaging: Xray Plain Films/CT/US/NM/MRI: chest Comments [facility], [place] NAME: ANGELINA SILVESTRE [facility] REC#: [id number] PT STATUS: REG ER : 1990 PHYSICIAN: CIPRIANO NINO MD ADMIT DATE: 06/09/21/ER Signed Date of Exam:06/09/21 CHEST 1 VIEW, AP/PA ONLY INDICATION: Covid positive patient, hypoxia. COMPARISON: 06/08/2021. FINDINGS: Some increased patchy multifocal bilateral infiltrates, left somewhat greater than right. No effusion or pneumothorax. Heart size and pulmonary vascularity are within normal limits. IMPRESSION: Increased multifocal patchy bilateral infiltrates. Dictated by: Dictated on workstation # [id number] Dict: 06/09/211924 Trans: 06/09/211938 [facility] [id number] Interpreted by: DEVAN IVERSON Electronically signed by: DEVAN IVERSON 06/09/211938 Reviewed: Reviewed by Me (FELICE MCCABE) Departure Impression Primary Impression: Pneumonia due to COVID-19 virus Additional Impressions: Hypoxia Anxiety Disposition: 01 HOME, SELF-CARE Condition: Stable Departure-Patient Inst. Decision time for Depature: 20:30 (FELICE MCCABE) Referrals: LUCIEN ROGERS MD (PCP/Family) Primary Care Physician Patient Instructions: COVID-19 (DC) Add. Discharge Instructions: Stop taking the prednisone. Decadron 1 tablet daily for the next 10 days. Use the oxygen from 2 to 6 L/min to keep your pulse oximeter at or above 94%. Zofran 1 tablet every 6 hours under the tongue as necessary for nausea or vomiting. Imodium 2 tablets for diarrhea followed by 1 tablet every 4 hours afterwards that you still have loose, watery stools. Tylenol and ibuprofen as necessary for body aches or fever. Proair 2 puffs through the spacer as demonstrated every 4 hours as necessary for cough or wheezing. Promptly return to the ER for oxygen saturations below 90% despite oxygen, dehydration despite medications described above or other worsening symptoms. All discharge instructions reviewed with patient and/or family. Voiced understanding. Scripts [oxygen Concentrator] No Conflict Check L NA DAILY PRN for SHORTNESS OF BREATH, #2 0 Refills 2-[address] [place] for SpO2 less than 94%. Prov: FELICE MCCABE 06/09/21 Dexamethasone (Decadron) 6 Mg Tablet 6 MG PO DAILY for 10 Days, #10 TAB 0 Refills Prov: FELICE MCCABE 06/09/21 Ondansetron (Ondansetron Odt) 4 Mg Tab.rapdis 4 MG PO Q6H PRN for NAUSEA/VOMITING, #15 TAB 0 Refills Prov: FELICE MCCABE 06/09/21 Copy Copies To 1: LUCIEN ROGERS MD, JOSHUA T MD Jun 09, 2021 18:06 FELICE MCCABE 26, 2021 20:34
[2021-06-09 18:21] LABS: ABG BASE EXCESS 0.7 MMOL/L (-2.5-2.5); ABG OXYGEN SATURATION 94 % (94-100); ABG PCO2 34 MMHG (35-45); ABG PH 7.46 (7.37-7.43); ABG PO2 74 MMHG (79-93); ABG TCO2 25.2 MMOL/L (21.0-31.0)
[2021-06-09 18:23] LABS: ALLENS TEST YES-POS; INSPIRED O2 ROOM AIR; VENTILATOR NO
[2021-06-09 18:45] LABS: BASOPHILS % (AUTO) 0 % (0-10); EOSINOPHILS % (AUTO) 0 % (0-10); HEMATOCRIT 40 % (35-52); HEMOGLOBIN 12.2 g/dL (11.5-16.0); LYMPHOCYTES # (AUTO) 0.9 10^3/uL (1.0-4.0); LYMPHOCYTES % (AUTO) 18 % (12-44); MEAN CORPUSCULAR HEMOGLOBIN 21 pg (25-34); MEAN CORPUSCULAR HGB CONC 31 g/dL (32-36); MEAN CORPUSCULAR VOLUME 67 fL (80-99); MEAN PLATELET VOLUME 9.2 fL (9.0-12.2); MONOCYTES # (AUTO) 0.5 10^3/uL (0.0-1.0); MONOCYTES % (AUTO) 10 % (0-12); NEUTROPHILS # (AUTO) 3.7 10^3/uL (1.8-7.8); NEUTROPHILS % (AUTO) 73 % (42-75); PLATELET COUNT 269 10^3/uL (130-400); WHITE BLOOD COUNT 5.2 10^3/uL (4.3-11.0)
[2021-06-09 19:00] LABS: CREATININE SERUM 0.66 MG/DL (0.60-1.30)
[2021-06-09 19:03] LABS: MAGNESIUM 2.4 MG/DL (1.6-2.4)
--- NOTE | 2021-06-09 19:35 | Diagnostic Imaging Report ---
INDICATION: Covid positive patient, hypoxia. COMPARISON: 06/08/2021. FINDINGS: Some increased patchy multifocal bilateral infiltrates, left somewhat greater than right. No effusion or pneumothorax. Heart size and pulmonary vascularity are within normal limits. IMPRESSION: Increased multifocal patchy bilateral infiltrates. Dictated by: Dictated on workstation # [id number]
[2021-06-09] MEDS ORDERED: ONDA4TAB11 PO (20:35)
[2021-06-09] MEDS ORDERED: OXYGEN CONCENTRATOR (20:35)
[2021-06-09] MEDS ORDERED: DEXA6TAB6 PO (20:35)
[2021-06-09] MEDS ORDERED: RX-ALBUTEROL INHALER 8.5 GM HFA (PROAIR) IH STA (20:37)
[2021-06-09 22:28] VITALS: BP 127/76
[2021-06-09] MEDS ORDERED: DIAZEPAM 5 MG (VALIUM) TABLET PO ONE (22:30)
== END 2021-06-09 22:28 | disposition home or self-care (01) ==
LOC: EDUNIT# 17:19 → ER 17:21
DX: U07.1 COVID-19 (principal); J12.82 Pneumonia due to coronavirus disease 2019; R09.02 Hypoxemia; F41.9 Anxiety disorder, unspecified; K21.9 Gastro-esophageal reflux disease without esophagitis; Z79.899 Other long term (current) drug therapy
CPT/HCPCS: 36415; 71045; 80048; 82805; 83735; 84703; 85025; 85379; 86141; 94640; 94664

== ENCOUNTER → 2021-07-19 | Outpatient (CLI) | payer OTHER ==
[~2021-07-19] MED LIST changes: +DEXA6TAB6 PO; +ONDA4TAB11 PO; +OXYGEN CONCENTRATOR
--- NOTE | 2021-07-19 16:39 | Diagnostic Imaging Report ---
Indication: Abdominal pain PA chest, supine and upright abdominal images are obtained Lungs are clear. There are no effusions or pneumothoraces. There is no intraperitoneal free air. Bowel gas pattern is normal. There are no pathologic masses or calcifications. IMPRESSION: No acute abnormalities in the abdomen Dictated by: Dictated on workstation # [id number]
== END ==
LOC: RAD 16:06
DX: R10.9 Unspecified abdominal pain (principal)
CPT/HCPCS: 74022

== ENCOUNTER 2022-01-20 03:37 | Emergency (ER) | payer OTHER ==
[~2022-01-20] VITALS: Ht 167.7 cm; Wt 107.3 kg
[~2022-01-20 03:37] MED LIST changes: +OMEP20TA56 PO; -OMEP20TA7 PO
[2022-01-20 03:49] VITALS: BP 171/96
[2022-01-20] MEDS ORDERED: CITA20TA9 (03:58)
[2022-01-20] MEDS ORDERED: NEBI5TAB11 (03:58)
--- NOTE | 2022-01-20 04:02 | ED Abdominal Pain ---
General Chief Complaint: Abdominal/GI Problems Stated Complaint: ABDOMINAL PAIN Source of Information: Patient Exam Limitations: No Limitations (DRAKE GUERRA MD) History of Present Illness Date Seen by Provider: Jan 20, 2022 Time Seen by Provider: 03:41 Initial Comments 31yoF coming for LUQ pain wrapping to L flank that is moderate in intensity. It is sharp and constant. Took tylenol which did not help. Worse with movement unless she bends over which helps. Had an episode of nonbloody diarrhea this morning as well. Denies any fever, chest pain, SOA, n/v, weakness, numbness, rash, or any other concerns. (DRAKE GUERRA MD) Allergies and Home Medications Allergies Coded Allergies: Sulfa (Sulfonamide Antibiotics) (Unverified Allergy, Intermediate, CHEST PAIN, RASH, 11/18/10) Uncoded Allergies: SULF (Allergy, Unknown, SWELLING, 02/09/14) Patient Home Medication List Home Medication List Reviewed: Yes (DRAKE GUERRA MD) Citalopram Hydrobromide (Citalopram HBr) 20 Mg Tablet, (Reported) Entered as Reported by: LISA BURK on 01/20/22357 Last Action: New Order Famotidine (Pepcid) 20 Mg Tablet, 20 MG PO BID Prescribed by: CIPRIANO FELIX on 01/20/22841 Hyoscyamine Sulfate (Levsin-Sl) 0.125 Mg Tab.subl, 1-2 TAB SL Q4H PRN for CRAMPS Prescribed by: CIPRIANO FELIX on 01/20/22841 Nebivolol HCl (Nebivolol HCl) 5 Mg Tablet, (Reported) Entered as Reported by: LISA BURK on 01/20/22357 Last Action: New Order Omeprazole (Omeprazole) 20 Mg Tablet.dr, 20 MG PO PRN, (Reported) Entered as Reported by: MARCEL OATES on 11/29/162308 Ondansetron (Ondansetron Odt) 4 Mg Tab.rapdis, 4 MG SL Q4H PRN for NAUSEA/VOMIT ING Prescribed by: CIPRIANO FELIX on 01/20/22841 Discontinued Medications Dexamethasone (Decadron) 6 Mg Tablet, 6 MG PO DAILY Discontinued Reason: No Longer Taking Prescribed by: FELICE TORO on 06/09/212034 Last Action: Discontinued Ferrous Sulfate (Ferrous Sulfate) 325 Mg Tablet, 325 MG PO DAILY Discontinued Reason: No Longer Taking Prescribed by: DARLIN VEGA on 11/30/161546 Last Action: Discontinued Hydrocodone Bit/Acetaminophen (Lortab 5 Mg Tablet) 1 Each Tablet, 1-2 TAB PO Q4H PRN for PAIN-MODERATE Discontinued Reason: No Longer Taking Prescribed by: DARLIN VEGA on 11/30/161546 Last Action: Discontinued Ibuprofen (Ibuprofen) 600 Mg Tablet, 600 MG PO Q6H Discontinued Reason: No Longer Taking Prescribed by: DARLIN VEGA on 11/30/161546 Last Action: Discontinued Ondansetron (Ondansetron Odt) 4 Mg Tab.rapdis, 4 MG PO Q6H PRN for NAUSEA/VOMITING Discontinued Reason: No Longer Taking Prescribed by: FELICE TORO on 06/09/212034 Last Action: Discontinued Vit No.124/Iron/FA ( Vitamin Tablet) 1 Each Tablet, 1 EACH PO DAILY, (Reported) Discontinued Reason: No Longer Taking Entered as Reported by: MARCEL OATES on 11/29/162308 Last Action: Discontinued [oxygen Concentrator] , L NA DAILY PRN for SHORTNESS OF BREATH, (DME) Discontinued Reason: No Longer Taking Prescribed by: FELICE TORO on 06/09/212034 Last Action: Discontinued Review of Systems Review of Systems Constitutional: No fever EENTM: No Blurred Vision Respiratory: Denies Cough Cardiovascular: Denies Chest Pain Gastrointestinal: Abdominal Pain, Diarrhea Genitourinary: No Symptoms Reported Musculoskeletal: no symptoms reported Skin: no symptoms reported Psychiatric/Neurological: No Symptoms Reported Endocrine: No Symptoms Reported Hematologic/Lymphatic: No Symptoms Reported (DRAKE GUERRA MD) All Other Systems Reviewed Negative Unless Noted: Yes (DRAKE GUERRA MD) Past Psewitz-Sjxbuf-Hqgspt Hx Patient Social History Tobacco Use?: No Substance use?: No Alcohol Use?: Yes Alcohol Frequency: Once in a while Pt feels they are or have been: No (DRAKE GUERRA MD) Immunizations Up To Date First/Initial COVID19 Vaccinat: 10/13 Second COVID19 Vaccination Damian: 4/1 (DRAKE GUERRA MD) Seasonal Allergies Seasonal Allergies: No (DRAKE GUERRA MD) Past Medical History Surgery/Hospitalization HX: anxiety Surgeries: Yes ([place] teeth) Orthopedic, Tonsillectomy Respiratory: No Cardiac: No Neurological: No Genitourinary: No Gastrointestinal: Yes (GERD) Gastroesophageal Reflux Musculoskeletal: No Endocrine: No HEENT: No Cancer: No Psychosocial: Yes Anxiety Integumentary: Yes Eczema Blood Disorders: No Adverse Reaction/Blood Tranf: No (DRAKE GUERRA MD) Family Medical History Diabetes mellitus (Father- type one Grandmother - type one) FH: arthritis (Mother) FH: prostate cancer (Father) FHx: rheumatoid arthritis (Mother) Hypertension (Mother) Physical Exam Vital Signs Vital Signs - First Documented 01/20/22 03:49 Temp 36.1 Pulse 103 Resp 16 B/P (MAP) 171/96 (121) Pulse Ox 99 O2 Delivery Room Air (CIPRIANO NINO MD) Vital Signs Capillary Refill : (DRAKE GUERRA MD) Height/Weight/BMI Height: 5'6.00" Weight: 232lbs. 0.2oz. 105.196667bd; 36.00 BMI Method:Stated General Appearance: WD/WN, no apparent distress HEENT: PERRL/EOMI, normal ENT inspection, pharynx normal Neck: non-tender, full range of motion, supple, normal inspection Respiratory: chest non-tender, lungs clear, normal breath sounds, no respiratory distress, no accessory muscle use Cardiovascular: regular rate, rhythm, no edema, no murmur Gastrointestinal: normal bowel sounds, soft; No distended, No guarding, No rebound; tenderness Extremities: normal range of motion, non-tender, normal inspection, no pedal edema, no calf tenderness, normal capillary refill Back: normal inspection, no CVA tenderness Neurologic/Psychiatric: no motor/sensory deficits, alert, normal mood/affect Skin: normal color, warm/dry Lymphatic: no adenopathy (DARKE GUERRA MD) Progress/Results/Core Measures Results/Orders Lab Results Laboratory Tests Test 01/20/22 03:50 01/20/22 04:34 Range/Units Urine Color YELLOW Urine Clarity CLEAR Urine pH 6.0 5-9 Urine Specific [place] 1.015 L 1.016-1.022 Urine Protein NEGATIVE NEGATIVE Urine Glucose (UA) NEGATIVE NEGATIVE Urine Ketones NEGATIVE NEGATIVE Urine Nitrite NEGATIVE NEGATIVE Urine Bilirubin NEGATIVE NEGATIVE Urine Urobilinogen 0.2 < = 1.0 MG/DL Urine Leukocyte Esterase NEGATIVE NEGATIVE Urine RBC (Auto) TRACE-I H NEGATIVE Urine RBC NONE /HPF Urine WBC NONE /HPF Urine Squamous Epithelial Cells 2-5 /HPF Urine Crystals NONE /LPF Urine Bacteria NEGATIVE /HPF Urine Casts NONE /LPF Urine Mucus NEGATIVE /LPF Urine Culture Indicated NO White Blood Count 12.6 H 4.3-11.0 10^3/uL Red Blood Count 5.43 H 3.80-5.11 10^6/uL Hemoglobin 11.4 L 11.5-16.0 g/dL Hematocrit 38 35-52 % Mean Corpuscular Volume 69 L 80-99 fL Mean Corpuscular Hemoglobin 21 L 25-34 pg Mean Corpuscular Hemoglobin Concent 30 L 32-36 g/dL Red Cell Distribution Width 18.8 H 10.0-14.5 % Platelet Count 375 130-400 10^3/uL Mean Platelet Volume 9.2 9.0-12.2 fL Immature Granulocyte % (Auto) 1 % Neutrophils (%) (Auto) 80 H 42-75 % Lymphocytes (%) (Auto) 15 12-44 % Monocytes (%) (Auto) 4 0-12 % Eosinophils (%) (Auto) 0 0-10 % Basophils (%) (Auto) 0 0-10 % Neutrophils # (Auto) 10.1 H 1.8-7.8 10^3/uL Lymphocytes # (Auto) 1.9 1.0-4.0 10^3/uL Monocytes # (Auto) 0.5 0.0-1.0 10^3/uL Eosinophils # (Auto) 0.0 0.0-0.3 10^3/uL Basophils # (Auto) 0.0 0.0-0.1 10^3/uL Immature Granulocyte # (Auto) 0.1 0.0-0.1 10^3/uL Sodium Level 137 135-145 MMOL/L Potassium Level 4.2 3.6-5.0 MMOL/L Chloride Level 108 H 98-107 MMOL/L Carbon Dioxide Level 18 L 21-32 MMOL/L Anion Gap 11 5-14 MMOL/L Blood Urea Nitrogen 13 7-18 MG/DL Creatinine 0.67 0.60-1.30 MG/DL Estimat Glomerular Filtration Rate 120 BUN/Creatinine Ratio 19 Glucose Level 114 H 70-105 MG/DL Calcium Level 9.1 8.5-10.1 MG/DL Corrected Calcium 9.0 8.5-10.1 MG/DL Total Bilirubin 0.3 0.1-1.0 MG/DL Aspartate Amino Transf (AST/SGOT) 11 5-34 U/L Alanine Aminotransferase (ALT/SGPT) 13 0-55 U/L Alkaline Phosphatase 71 40-136 U/L C-Reactive Protein High Sensitivity 2.61 H 0.00-0.50 MG/DL Total Protein 7.4 6.4-8.2 GM/DL Albumin 4.1 3.2-4.5 GM/DL Lipase 17 8-78 U/L (CIPRIANO NINO MD) My Orders Orders - CIPRIANO NINO MD Ondansetron Oral Dissolve Tab (Zofran (01/20/22 08:15) (CIPRIANO NINO MD) Medications Given in ED Current Medications Medications Dose Ordered Sig/Jorge Route Start Time Stop Time Status Last Admin Dose Admin Acetaminophen/ Hydrocodone Bitart 1 ea ONCE ONCE PO 01/20/22 05:00 01/20/22 05:01 DC 01/20/22 05:10 1 EA Al Hydrox/Mg Hydrox/Simethicone 30 ml ONCE ONCE PO 01/20/22 04:30 01/20/22 04:31 DC 01/20/22 04:29 30 ML Hyoscyamine Sulfate 0.125 mg ONCE ONCE PO 01/20/22 04:30 01/20/22 04:31 DC 01/20/22 04:29 0.125 MG Lidocaine HCl 15 ml ONCE ONCE PO 01/20/22 04:30 01/20/22 04:31 DC 01/20/22 04:29 15 ML Ondansetron HCl 8 mg ONCE ONCE SL 01/20/22 08:15 01/20/22 08:17 DC 01/20/22 08:21 8 MG (CIPRIANO NINO MD) Vital Signs/I&O 01/20/22 03:49 Temp 36.1 Pulse 103 Resp 16 B/P (MAP) 171/96 (121) Pulse Ox 99 O2 Delivery Room Air (CIPRIANO NINO MD) Progress Progress Note : Progress Note 31-year-old female with above history coming in due to left-sided abdominal pain rating to her left flank. ABCs were intact and vitals were stable on presentation. Physical exam with more epigastric to left sided abdominal pain. No flank pain, exam. She was given a GI cocktail initially which did not help with her pain. This was followed up with Toradol and hydrocodone. Patient lab significant for a slightly elevated white blood cell count around 12.6, slightly elevated CRP around 2, normal creatinine. Urinalysis with trace amount of blood. She is not menstruating at this time. Could be kidney stone versus gastritis versus some other etiology. CT abdomen pelvis ordered to further assess for symptoms. Patient will be handed off to the oncoming physician pending the CT results (DRAKE GUERRA MD) Progress Note : Time: 08:35 Progress Note I assumed care of this patient at shift change. She complained of nausea and was treated with sublingual Zofran. Pain and tenderness had completely resolved on reexamination. CT scan was reviewed and no acute pathology to explain her pain was identified. There was slight hematuria which could be due to recent menstrual cycle which finished 3 days ago. Patient denied any pain or tenderness in the pelvis. Therefore ultrasound to evaluate for ovarian torsion was not needed. Patient has had prior problems with ulcers and upper abdominal symptoms. I am adding an H. pylori test to her labs which she can follow-up on with her primary care provider when she finds a new doctor to establish with. Her prior primary care provider was Dr. Rogers who is recently . See discharge instructions for further discussion. (CIPRIANO NINO MD) Diagnostic Imaging Diagonstic Imaging: CT Plain Films/CT/US/NM/MRI: abdomen, pelvis Comments CT abdomen pelvis viewed by me and report reviewed. See report below: NAME: ANGELINA [facility] REC#: [id number] PT STATUS: REG ER : 1990 PHYSICIAN: DRAKE GUERRA MD ADMIT DATE: 01/20/22/ER Signed Date of Exam:01/20/22 CT ABD/PELVIS WO(KIDNEY STONE) TECHNIQUE: Unenhanced CT imaging of the abdomen and pelvis was performed. 2-D reformats are created and submitted for interpretation. Automatic exposure controls were utilized to optimize patient dose. INDICATION: Left flank pain COMPARISON: None available. FINDINGS: Evaluation of the abdominal viscera is suboptimal without contrast. Lower chest: The lung bases are clear. No pericardial or pleural effusion. Peritoneum: No free intraperitoneal air or fluid. Liver and biliary system: Unenhanced liver is normal. The gallbladder is normal. No biliary duct dilation. Spleen and Pancreas: Spleen is normal. Unenhanced pancreas is grossly normal. Adrenals: Normal. tract: No renal or ureteral calculi. No obstructive uropathy. The urinary bladder is normally filled. Uterus and ovaries are normal in appearance. GI tract: Stomach is decompressed. No bowel obstruction. No pericolonic inflammatory changes. Normal appendix. Vasculature and Lymph nodes: Normal caliber aorta. No abdominal or pelvic lymphadenopathy. Musculoskeletal: No concerning osseous lesion. IMPRESSION: 1. No acute obstructive or inflammatory process. 2. No urinary tract calculi. Dictated by: Dictated on workstation # [id number] Dict: 01/20/22618 Trans: 01/20/22621 [facility] [id number] Interpreted by: ELIDA DAMON MD Electronically signed by: ELIDA DAMON MD 01/20/22621 (CIPRIANO NINO MD) Departure Impression Primary Impression: Left lateral abdominal pain Additional Impressions: Nausea Diarrhea Qualified Codes: R19.7 - Diarrhea, unspecified Disposition: 01 HOME, SELF-CARE Condition: Improved Departure-Patient Inst. Decision time for Depature: 08:37 (CIPRIANO NINO MD) Referrals: LUCIEN ROGERS MD (PCP/Family) Primary Care Physician Patient Instructions: Abdominal Pain, Adult ED Add. Discharge Instructions: Try to adhere to a noncarbonated clear liquid diet for the rest of today. Then gradually advance your diet with small quantities of bland food as tolerated. Use Zofran (ondansetron) as prescribed for nausea and vomiting. Use Levsin (hyoscyamine) as prescribed for bowel cramping or diarrhea. Take Pepcid twice daily for at least the next 2 weeks. If you have recurrent or persistent problems with abdominal symptoms after that, please discuss referral for endoscopy with your primary care provider. You may take Tylenol (acetaminophen) up to 1000 mg every 6 hours as needed for pain. If you have pain not controlled by acetaminophen, you may use ibuprofen sparingly for short-term treatment of pain up to 600 mg every 6 hours as needed. Avoid the following: Eating large meals, eating close to bedtime, caffeine, carbonation, citrus fruits and juices, chocolate, mints, alcohol, tobacco, tomato products, frequent or nursing home use of NSAID medications such as ibuprofen or naproxen, spicy foods, fatty/greasy foods, or anything else you know irritates your stomach. Return to care if you have worsening symptoms despite following these instructions or if you develop new symptoms such as vomiting, blood in your stools, fever, escalating pain, etc. All discharge instructions reviewed with patient and/or family. Voiced understanding. Scripts Ondansetron (Ondansetron Odt) 4 Mg Tab.rapdis 4 MG SL Q4H PRN for NAUSEA/VOMITING, #10 TAB Prov: CIPRIANO NINO MD 01/20/22 Hyoscyamine Sulfate (Levsin-Sl) 0.125 Mg Tab.subl 1-2 TAB SL Q4H PRN for CRAMPS, #10 TAB 0 Refills Prov: CIPRIANO NINO MD 01/20/22 Famotidine (Pepcid) 20 Mg Tablet 20 MG PO BID, #30 TAB Prov: CIPRIANO NINO MD 01/20/22 DRAKE GUERRA MD Jan 20, 2022 04:02 CIPRIANO NINO MD Jan 20, 2022 08:19
[2022-01-20 04:08] LABS: BILIRUBIN,URINE NEGATIVE (NEGATIVE); CLARITY,URINE CLEAR; COLOR,URINE YELLOW; GLUCOSE, URINE (UA) NEGATIVE (NEGATIVE); KETONES,URINE NEGATIVE (NEGATIVE); LEUKOCYTE ESTERASE ,URINE NEGATIVE (NEGATIVE); NITRITE,URINE NEGATIVE (NEGATIVE); PROTEIN,URINE NEGATIVE (NEGATIVE)
[2022-01-20 04:14] LABS: BACTERIA,URINE NEGATIVE /HPF
[2022-01-20] MEDS ORDERED: FAMOTIDINE 20 MG (PEPCID) TABLET PO STA (04:22)
[2022-01-20] MEDS ORDERED: ANTACID SUSP 30 ML UDC (MYLANTA) PO ONE (04:30)
[2022-01-20] MEDS ORDERED: LIDOCAINE 2% VISCOUS 15 ML UDC PO ONE (04:30)
[2022-01-20] MEDS ORDERED: HYOSCYAMINE 0.125 MG (LEVSIN) TAB PO ONE (04:30)
[2022-01-20 04:45] LABS: BASOPHILS % (AUTO) 0 % (0-10); EOSINOPHILS % (AUTO) 0 % (0-10); HEMATOCRIT 38 % (35-52); HEMOGLOBIN 11.4 g/dL (11.5-16.0); LYMPHOCYTES # (AUTO) 1.9 10^3/uL (1.0-4.0); LYMPHOCYTES % (AUTO) 15 % (12-44); MEAN CORPUSCULAR HEMOGLOBIN 21 pg (25-34); MEAN CORPUSCULAR HGB CONC 30 g/dL (32-36); MEAN CORPUSCULAR VOLUME 69 fL (80-99); MEAN PLATELET VOLUME 9.2 fL (9.0-12.2); MONOCYTES # (AUTO) 0.5 10^3/uL (0.0-1.0); MONOCYTES % (AUTO) 4 % (0-12); NEUTROPHILS # (AUTO) 10.1 10^3/uL (1.8-7.8); NEUTROPHILS % (AUTO) 80 % (42-75); PLATELET COUNT 375 10^3/uL (130-400); WHITE BLOOD COUNT 12.6 10^3/uL (4.3-11.0)
[2022-01-20 04:52] LABS: ALBUMIN 4.1 GM/DL (3.2-4.5); POTASSIUM 4.2 MMOL/L (3.6-5.0)
[2022-01-20 04:53] LABS: CALCIUM 9.1 MG/DL (8.5-10.1)
[2022-01-20 04:54] LABS: TOTAL PROTEIN 7.4 GM/DL (6.4-8.2)
[2022-01-20 04:56] LABS: BILIRUBIN,TOTAL 0.3 MG/DL (0.1-1.0)
[2022-01-20 04:58] LABS: CREATININE SERUM 0.67 MG/DL (0.60-1.30)
[2022-01-20] MEDS ORDERED: HYDROcodone/APAP 5 MG/325 MG (LORTAB) TAB PO ONE (05:00)
[2022-01-20] MEDS ORDERED: KETOROLAC 30 MG/ML VIAL IVP ONE (05:00)
[2022-01-20] MEDS: KETOROLAC 30 MG/ML VIAL IM ONE ×2 (05:13→05:15)
--- NOTE | 2022-01-20 06:23 | Diagnostic Imaging Report ---
CT ABD/PELVIS WO(KIDNEY STONE) TECHNIQUE: Unenhanced CT imaging of the abdomen and pelvis was performed. 2-D reformats are created and submitted for interpretation. Automatic exposure controls were utilized to optimize patient dose. INDICATION: Left flank pain COMPARISON: None available. FINDINGS: Evaluation of the abdominal viscera is suboptimal without contrast. Lower chest: The lung bases are clear. No pericardial or pleural effusion. Peritoneum: No free intraperitoneal air or fluid. Liver and biliary system: Unenhanced liver is normal. The gallbladder is normal. No biliary duct dilation. Spleen and Pancreas: Spleen is normal. Unenhanced pancreas is grossly normal. Adrenals: Normal. tract: No renal or ureteral calculi. No obstructive uropathy. The urinary bladder is normally filled. Uterus and ovaries are normal in appearance. GI tract: Stomach is decompressed. No bowel obstruction. No pericolonic inflammatory changes. Normal appendix. Vasculature and Lymph nodes: Normal caliber aorta. No abdominal or pelvic lymphadenopathy. Musculoskeletal: No concerning osseous lesion. IMPRESSION: 1. No acute obstructive or inflammatory process. 2. No urinary tract calculi. Dictated by: Dictated on workstation # [id number]
[2022-01-20] MEDS ORDERED: ONDANSETRON 4 MG (ZOFRAN) ORAL DISSOLVE TAB SL ONE (08:15)
[2022-01-20] MEDS ORDERED: ONDA4TAB11 SL (08:42)
[2022-01-20] MEDS ORDERED: HYOS0.1283 SL (08:42)
[2022-01-20] MEDS ORDERED: FAMO-119 PO (08:42)
== END 2022-01-20 08:49 | disposition home or self-care (01) ==
LOC: EDUNIT# 03:37 → ER 03:40
DX: R19.7 Diarrhea, unspecified (principal); R11.0 Nausea; R10.13 Epigastric pain; D72.829 Elevated white blood cell count, unspecified; R79.82 Elevated C-reactive protein (CRP)
CPT/HCPCS: 36415; 74176; 80053; 81000; 83690; 84703; 85025; 86141

== ENCOUNTER → 2022-02-02 | Outpatient (CLI) | payer OTHER ==
[~2022-02-02] MED LIST changes: +CITA20TA9; +FAMO-119 PO; +HYOS0.1283 SL; +NEBI5TAB11; +ONDA4TAB11 SL
--- NOTE | 2022-02-02 08:42 | Diagnostic Imaging Report ---
INDICATION: Abdominal pain. Nausea and vomiting. Diarrhea. PROCEDURE: Ultrasound abdomen complete. TECHNIQUE: Multiple real-time grayscale images were obtained of the abdomen in various projections. COMPARISON: 01/20/2022. FINDINGS: The liver is normal in size, shape and echotexture. There are no focal lesions. No intra or extrahepatic biliary dilatation is present. The common bile duct is nondilated and measures 0.4 cm. There is no evidence of cholelithiasis or gallbladder wall thickening or pericholecystic fluid. Sonographic Sarmiento's sign is negative. The visualized portions of the head and proximal body of the pancreas are within normal limits. The distal body and tail are not well visualized due to overlying bowel gas. Both kidneys are normal in size and echogenicity. The cortical thickness and the corticomedullary differentiation is well maintained. The right kidney measures 10.7 cm. The left kidney measures 11.4 cm. There is no evidence of calculi, focal mass or hydronephrosis. The spleen is not enlarged. The visualized upper aorta and IVC are normal in course and caliber. There is no ascites in the upper abdomen. IMPRESSION: 1. Negative abdominal sonogram. Dictated by: Dictated on workstation # [id number]
== END ==
LOC: RAD 07:15
PROVIDERS: ATTEND Nurse Practitioner Family
DX: R10.9 Unspecified abdominal pain (principal); R11.2 Nausea with vomiting, unspecified; R19.7 Diarrhea, unspecified
CPT/HCPCS: 76700

== ENCOUNTER → 2022-02-16 | Outpatient (CLI) | payer OTHER ==
[~2022-02-16] MED LIST changes: +CATHETER FLUSH 10 ML SYR IVP PRN
--- NOTE | 2022-02-16 15:35 | Diagnostic Imaging Report ---
INDICATION: Abdominal pain. TECHNIQUE: Patient was administered 5.5 mCi of technetium-99m Choletec intravenously, and imaging over the abdomen was performed. At one hour, patient ingested Ensure, and the gallbladder ejection fraction was calculated. FINDINGS: There is homogeneous uptake of activity by the liver with prompt excretion of activity into the gallbladder and common duct. There is normal passage of activity into the small bowel. Gallbladder ejection fraction is low at 22%. Normal values are 35% or greater. IMPRESSION: 1. Patent cystic duct and common bile duct. 2. Low gallbladder ejection fraction of 22%. Dictated by: Dictated on workstation # [id number]
== END ==
LOC: CARD 12:00
PROVIDERS: ATTEND Nurse Practitioner Family
DX: R10.13 Epigastric pain (principal); R19.7 Diarrhea, unspecified
CPT/HCPCS: 78227; A9537

== ENCOUNTER → 2022-02-27 | Outpatient (CLI) | payer OTHER ==
[~2022-02-27] MED LIST changes: -CATHETER FLUSH 10 ML SYR IVP PRN
--- NOTE | 2022-02-27 17:54 | Diagnostic Imaging Report ---
INDICATION: COVID-19. TIME OF EXAM: 04:52 p.m. COMPARISON: Correlation is made to prior chest radiograph from 06/09/2021. FINDINGS: The heart size is normal. The pulmonary vascularity is unremarkable. The lungs are clear. No infiltrate, effusion or pneumothorax is detected. IMPRESSION: No acute cardiopulmonary process is detected. Dictated by: Dictated on workstation # [id number]
== END ==
LOC: RAD 16:25
PROVIDERS: ATTEND Surgery
DX: U07.1 COVID-19 (principal)
CPT/HCPCS: 71045